=== PATIENT | female | born 1945 | race Caucasian/White ===

== ENCOUNTER 2020-03-22 12:46 | Outpatient (CLI) | payer MEDICARE, OTHER ==
--- NOTE | 2020-03-22 14:52 | XRAY Report ---
PROCEDURE: Knee 3 View LT INDICATIONS: LEFT KNEE PAIN TECHNIQUE: 3 views of the left knee(s) were acquired. COMPARISON: None. FINDINGS: Bones: No fractures or dislocations. No suspicious bony lesions. There is a moderately severe degr ee of medial compartment joint space narrowing at the left knee and also a mild to moderate degree of such narrowing is present at the lateral facet of the patellofemoral joint. Soft tissues: No joint effusion. No suspicious soft tissue calcifications. 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 Reviewed by: Leon Alcala MD on 03/22/2020 2:51 PM PDT Approved by: Leon Alcala MD on 03/22/2020 2:51 PM PDT Station ID: [id number]
== END 2020-03-22 12:47 | disposition home or self-care (01) ==
LOC: DI 12:46
PROVIDERS: ATTEND Internal Medicine
DX: M17.12 Unilateral primary osteoarthritis, left knee (principal)